=== PATIENT | female | born 1975 | race African-American/Black ===

== ENCOUNTER 2016-05-28 15:41 | Emergency (ER) | payer OTHER ==
[2016-05-28 15:48] VITALS: BP 106/80; PULSE 97; TEMP 97.9; BMI 25.7
== END 2016-05-28 16:28 | disposition left against medical advice (07) ==
LOC: JER 15:41
DX: Z53.21 Procedure and treatment not carried out due to patient leaving prior to being seen by health care provider (principal)
CPT/HCPCS: 99281-25

== ENCOUNTER 2016-05-29 08:33 | Emergency (ER) | payer OTHER ==
[2016-05-29 08:41] VITALS: BMI 25.7
[2016-05-29] MEDS ORDERED: SODIUM CHLORIDE 0.9% 1000 ML INFUS.BAG IV ONE ×2 (09:33→11:23)
[2016-05-29 09:42] LABS: URINE APPEARANCE CLEAR; URINE BILIRUBIN NEGATIVE (NEGATIVE); URINE COLOR YELLOW; URINE GLUCOSE (UA) NEGATIVE (NEGATIVE); URINE KETONE NEGATIVE (NEGATIVE); URINE LEUK ESTERASE NEGATIVE (NEGATIVE); URINE NITRITE NEGATIVE (NEGATIVE); URINE UROBILINOGEN NEGATIVE E.U./dl (0.2-1.0)
[2016-05-29 09:43] LABS: URINE BLOOD 2+ (NEGATIVE); URINE PROTEIN 1+ (NEGATIVE)
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
[2016-05-29 09:47] LABS: URINE BACTERIA FEW /hpf (NONE SEEN); URINE MUCUS FEW; URINE RBC 63 /hpf (0-3); URINE WBC 5 /hpf (3-5)
[2016-05-29] MEDS ORDERED: ACETAMINOPHEN 325 MG TABLET (FP) PO ONE (10:20)
[2016-05-29 10:23] LABS: BASOPHIL 0.4 % (0-2.0); EOSINOPHIL 1.7 % (0-4.5); MCH 28.2 pg (25.7-33.7); MCHC 33.3 g/dl (32.0-36.0); MEAN CELL VOLUME 84.8 fl (80-96); MEAN PLT VOLUME 7.6 fl (7.5-11.1); NEUTROPHILS 63.8 % (42.8-82.8); PLATELET COUNT 385 K/MM3 (134-434); RDW 14.4 % (11.6-15.6); WHITE BLOOD COUNT 7.2 K/mm3 (4.0-10.0)
[2016-05-29] MEDS ORDERED: ACETAMINOPHEN 325 MG TABLET (FP) ONE (10:26)
[2016-05-29 10:49] LABS: ALBUMIN 3.8 g/dl (3.4-5.0); ALK PHOS 135 U/L (45-117); ANION GAP 10 (8-16); BILIRUBIN,TOTAL 0.6 mg/dL (0.2-1.0); CALCIUM 9.4 mg/dL (8.5-10.1); CO2 21 mmol/L (21-32); CREATININE 0.8 mg/dL (0.55-1.02); GLUCOSE,RANDOM 109 mg/dL (74-106); SGPT/ALT 52 U/L (12-78)
[2016-05-29 10:51] LABS: SGOT/AST 47 U/L (15-37)
[2016-05-29] MEDS ORDERED: KETOROLAC TROMETHAMINE 30 MG/1 ML VIAL IVPUSH ONE (11:00)
[2016-05-29] MEDS ORDERED: KETOROLAC TROMETHAMINE 30 MG/1 ML VIAL ONE (11:04)
[2016-05-29 12:41] VITALS: BP 121/74; PULSE 100; TEMP 98.6
== END 2016-05-29 12:41 | disposition home or self-care (01) ==
LOC: JER 08:33
PROC: 3E0337Z Introduction of Electrolytic and Water Balance Substance into Peripheral Vein, Percutaneous Approach (ICD-10-PCS; principal; 2016-05-29)
PROC: 3E0333Z Introduction of Anti-inflammatory into Peripheral Vein, Percutaneous Approach (ICD-10-PCS; 2016-05-29)
DX: E86.0 Dehydration (principal); R80.8 Other proteinuria; R31.9 Hematuria, unspecified; Z93.2 Ileostomy status
CPT/HCPCS: 36415; 80053; 81003; 81015; 84703; 85025; 96361; 96374; 99283-25

== ENCOUNTER 2017-01-11 07:32 | Day surgery (SDC) | payer OTHER ==
[2017-01-11] MEDS ORDERED: IRON SUCROSE INJECTION 100 MG in SODIUM CHLORIDE 100 ML IVPB ONE (08:00)
[2017-01-11 11:24] LABS: BASOPHIL 0.6 % (0-2.0); EOSINOPHIL 1.1 % (0-4.5); MCH 27.9 pg (25.7-33.7); MCHC 32.6 g/dl (32.0-36.0); MEAN CELL VOLUME 85.7 fl (80-96); MEAN PLT VOLUME 7.8 fl (7.5-11.1); NEUTROPHILS 68.3 % (42.8-82.8); PLATELET COUNT 417 K/MM3 (134-434); RDW 15.5 % (11.6-15.6)
[2017-01-11 12:35] LABS: ALBUMIN 3.6 g/dl (3.4-5.0); ANION GAP 11 (8-16); BILIRUBIN,DIRECT 0.1 mg/dL (0.0-0.2); BILIRUBIN,TOTAL 0.5 mg/dL (0.2-1.0); CALCIUM 8.8 mg/dL (8.5-10.1); CO2 23 mmol/L (21-32); CREATININE 0.7 mg/dL (0.55-1.02); GLUCOSE,RANDOM 103 mg/dL (74-106); MAGNESIUM 1.8 mg/dL (1.8-2.4); SGOT/AST 9 U/L (15-37); SGPT/ALT 18 U/L (12-78)
[2017-01-11 12:36] LABS: ALK PHOS 81 U/L (45-117)
[2017-01-11] MEDS ORDERED: DEXAMETHASONE INJECTION 8 MG in DEXTROSE 5%-WATER - 50 ML IVPB ONE (13:00)
[2017-01-11 15:40] VITALS: PULSE 75; TEMP 98.4
[2017-01-11 15:49] VITALS: BP 129/82
[2017-01-12 08:07] LABS: SERUM IRON 37 ug/dL (27-159); TOTAL IRON BINDING CAPACITY 363 ug/dL (250-450); UIBC 326 ug/dL (131-425)
== END 2017-01-11 15:00 | disposition home or self-care (01) ==
LOC: JONCNONCHE 07:32 → J7W 13:05 → JONCNONCHE 15:00
PROVIDERS: ATTEND Internal Medicine Hematology & Oncology
PROC: 3E033GC Introduction of Other Therapeutic Substance into Peripheral Vein, Percutaneous Approach (ICD-10-PCS; principal; 2017-01-11)
DX: D50.9 Iron deficiency anemia, unspecified (principal)
CPT/HCPCS: 36415; 80053; 80076; 82306; 82607; 82728; 83540; 83550; 83735; 85025; 85730; 86140; 96365; 96367; 96375; 96417; J1756

== ENCOUNTER 2017-05-13 07:18 | Day surgery (SDC) | payer OTHER ==
[2017-05-13] MEDS ORDERED: DEXAMETHASONE SOD PHOSPHATE 10 MG/1 ML VIAL IVPUSH ONE (13:00)
[2017-05-13] MEDS ORDERED: IRON SUCROSE INJECTION 100 MG in SODIUM CHLORIDE 100 ML IVPB ONE (13:30)
[2017-05-13] MEDS ORDERED: DEXAMETHASONE SOD PHOSPHATE 4 MG/1 ML VIAL IVPUSH ONE (15:15)
[2017-05-13 18:03] VITALS: BP 128/75; PULSE 90; TEMP 98
== END 2017-05-13 18:39 | disposition home or self-care (01) ==
LOC: JONCNONCHE 07:18 → J7W 14:23 → JONCNONCHE 18:39
PROVIDERS: ATTEND Internal Medicine Hematology & Oncology
PROC: 3E033GC Introduction of Other Therapeutic Substance into Peripheral Vein, Percutaneous Approach (ICD-10-PCS; principal; 2017-05-13)
DX: D50.9 Iron deficiency anemia, unspecified (principal)
CPT/HCPCS: 96365; J1756

== ENCOUNTER 2017-07-19 07:30 | Day surgery (SDC) | payer OTHER ==
[2017-07-19] MEDS ORDERED: DEXAMETHASONE SOD PHOSPHATE 10 MG/1 ML VIAL IVPUSH ONE (10:00)
[2017-07-19] MEDS ORDERED: IRON SUCROSE INJECTION 100 MG in SODIUM CHLORIDE 100 ML IVPB ONE (10:30)
[2017-07-19 11:19] LABS: BASO % 0.7 % (0-2.0); HEMATOCRIT 37.3 % (32.4-45.2); HEMOGLOBIN 12.6 GM/dL (10.7-15.3); LYMPH % 23.3 % (8-40); MCH 30.5 pg (25.7-33.7); MCHC 33.8 g/dl (32.0-36.0); MEAN PLT VOLUME 7.2 fl (7.5-11.1); MONO % 6.8 % (3.8-10.2); NEUT % 68.2 % (42.8-82.8); PLATELET COUNT 395 K/MM3 (134-434); RBC 4.14 M/mm3 (3.60-5.2); RDW 12.7 % (11.6-15.6); WHITE BLOOD COUNT 7.5 K/mm3 (4.0-10.0)
[2017-07-19 11:43] LABS: ALBUMIN 3.7 g/dl (3.4-5.0); ANION GAP 7 (8-16); BILIRUBIN,TOTAL 0.5 mg/dL (0.2-1.0); BLOOD UREA NITROGEN 11 mg/dL (7-18); CHLORIDE 105 mmol/L (98-107); CO2 25 mmol/L (21-32); GLUCOSE,RANDOM 125 mg/dL (74-106); POTASSIUM 4.1 mmol/L (3.5-5.1); SGOT/AST 14 U/L (15-37); SGPT/ALT 20 U/L (12-78); SODIUM 137 mmol/L (136-145); TOT PROT 7.3 g/dl (6.4-8.2)
[2017-07-19 11:44] LABS: ALK PHOS 80 U/L (45-117)
[2017-07-19 12:00] LABS: BILIRUBIN,DIRECT 0.2 mg/dL (0.0-0.2); MAGNESIUM 1.8 mg/dL (1.8-2.4)
[2017-07-19] MEDS ORDERED: CYANOCOBALAMIN (VITAMIN B-12) 1000 MCG/1 ML VIAL IM ONE (12:30)
[2017-07-19 17:47] VITALS: TEMP 98.1
[2017-07-19 17:50] VITALS: BP 128/69; PULSE 79
== END 2017-07-19 14:00 | disposition home or self-care (01) ==
LOC: JONCCHEMO 07:30 → J7W 12:05 → JONCCHEMO 14:00
PROVIDERS: ATTEND Internal Medicine Hematology & Oncology
PROC: 3E033GC Introduction of Other Therapeutic Substance into Peripheral Vein, Percutaneous Approach (ICD-10-PCS; principal; 2017-07-19)
DX: D50.9 Iron deficiency anemia, unspecified (principal)
CPT/HCPCS: 36415; 80053; 80076; 82607; 82728; 83735; 85025; 96365; J1100; J1756

== ENCOUNTER 2017-08-23 07:32 | Day surgery (SDC) | payer OTHER ==
[~2017-08-23 07:32] MED LIST: DEXAMETHASONE INJECTION 8 MG in SODIUM CHLORIDE 50 ML IVPB ONE; IRON SUCROSE INJECTION 100 MG in SODIUM CHLORIDE 100 ML IVPB ONE
[2017-08-23] MEDS ORDERED: DEXAMETHASONE INJECTION 8 MG in SODIUM CHLORIDE 50 ML IVPB ONE (10:00)
[2017-08-23] MEDS ORDERED: IRON SUCROSE INJECTION 100 MG in SODIUM CHLORIDE 100 ML IVPB ONE (10:30)
[2017-08-23 15:13] VITALS: TEMP 98
[2017-08-23 15:47] VITALS: BP 122/73; PULSE 85
== END 2017-08-23 15:48 | disposition home or self-care (01) ==
LOC: JONCNONCHE 07:32
PROVIDERS: ATTEND Internal Medicine Hematology & Oncology
PROC: 3E033GC Introduction of Other Therapeutic Substance into Peripheral Vein, Percutaneous Approach (ICD-10-PCS; principal; 2017-08-23)
DX: D50.9 Iron deficiency anemia, unspecified (principal)
CPT/HCPCS: 96365; J1100; J1756

== ENCOUNTER 2017-09-30 08:16 | Day surgery (SDC) | payer OTHER ==
[2017-09-30] MEDS ORDERED: DEXAMETHASONE INJECTION 8 MG in SODIUM CHLORIDE 50 ML IVPB ONE (10:00)
[2017-09-30] MEDS ORDERED: IRON SUCROSE INJECTION 100 MG in SODIUM CHLORIDE 100 ML IVPB ONE (10:30)
[2017-09-30] MEDS ORDERED: DEXAMETHASONE SOD PHOSPHATE 10 MG/1 ML VIAL ONE (14:48)
--- NOTE | 2017-09-30 15:57 | HP ---
Satellite [facility] - Chief Complaint History of Present Illness: here for IV iron. Pt seen and examined. no issues History Source: Patient - Past Medical History Allergies/Adverse Reactions: Allergies Allergy/AdvReac Type Severity Reaction Status Date / Time shellfish derived Allergy Verified 05/29/16 08:35 Pulmonary: Yes: Asthma Gastrointestinal: Yes: Ulcerative Colitis ...LMP: 03/18/16 - Current Medications Current Medications: Home Medications Medication Instructions Recorded Albuterol 0.083% Nebulizer Yina 1 amp NEB Q4H PRN #0 amp 03/10/16 [Ventolin 0.083% Nebulizer Soln -] Budesonide/Formeterol Fumarate 2 puff IH BID inhaler 03/10/16 [SYMBICORT 160/4.5mcg -] Diphenoxylate 2.5/Atropine.025 2 combo PO Q6H 04/06/16 [Lomotil -] Satellite Physical Exam - Physical Examination General Appearance: Well Nourished, Well Developed, Alert & Oriented x3 Lung: Clear to auscultation Heart: Regular rate & rhythm Abdomen: Soft Extremities: No edema Satellite Impression/Plan - Impression/Plan Impression: for Venofer. for pre-meds. pt to call on tuesday for MD visit for follow-up appt
[2017-09-30 17:07] VITALS: BP 150/80; PULSE 81; TEMP 98
== END 2017-09-30 16:08 | disposition home or self-care (01) ==
LOC: JONCNONCHE 08:16 → J7W 14:07 → JONCNONCHE 16:08
PROVIDERS: ATTEND Internal Medicine Hematology & Oncology
PROC: 3E033GC Introduction of Other Therapeutic Substance into Peripheral Vein, Percutaneous Approach (ICD-10-PCS; principal; 2017-09-30)
DX: D50.9 Iron deficiency anemia, unspecified (principal)
CPT/HCPCS: 96365; J1100; J1756

== ENCOUNTER 2018-01-27 07:47 | Day surgery (SDC) | payer OTHER ==
[2018-01-27] MEDS ORDERED: DEXAMETHASONE INJECTION 8 MG in SODIUM CHLORIDE 50 ML IVPB ONE (10:00)
[2018-01-27] MEDS ORDERED: IRON SUCROSE INJECTION 100 MG in SODIUM CHLORIDE 100 ML IVPB ONE (10:15)
[2018-01-27 13:54] VITALS: TEMP 98.4
[2018-01-27 15:20] VITALS: BP 130/85; PULSE 79
== END 2018-01-27 12:25 | disposition home or self-care (01) ==
LOC: JONCNONCHE 07:47 → J7W 11:13 → JONCNONCHE 12:25
PROVIDERS: ATTEND Internal Medicine Hematology & Oncology
PROC: 3E033GC Introduction of Other Therapeutic Substance into Peripheral Vein, Percutaneous Approach (ICD-10-PCS; principal; 2018-01-27)
DX: D50.9 Iron deficiency anemia, unspecified (principal)
CPT/HCPCS: 96365; J1100; J1756

== ENCOUNTER 2018-03-27 08:35 | Day surgery (SDC) | payer OTHER ==
[2018-03-27] MEDS ORDERED: IRON SUCROSE INJECTION 100 MG in SODIUM CHLORIDE 100 ML IVPB ONE (10:00)
[2018-03-27] MEDS ORDERED: DEXAMETHASONE SODIUM PHOSPHATE 8 MG in SODIUM CHLORIDE 50 ML IVPB ONE (10:00)
[2018-03-27 17:18] VITALS: PULSE 84; TEMP 97.6
[2018-03-27 17:20] VITALS: BP 148/86
== END 2018-03-27 14:50 | disposition home or self-care (01) ==
LOC: JONCNONCHE 08:35 → J7W 13:36 → JONCNONCHE 14:50
PROVIDERS: ATTEND Internal Medicine Hematology & Oncology
PROC: 3E033GC Introduction of Other Therapeutic Substance into Peripheral Vein, Percutaneous Approach (ICD-10-PCS; principal; 2018-03-27)
DX: D50.9 Iron deficiency anemia, unspecified (principal)
CPT/HCPCS: 96365; J1756

== ENCOUNTER 2018-07-31 07:10 | Day surgery (SDC) | payer OTHER ==
[2018-07-31] MEDS ORDERED: DEXAMETHASONE SODIUM PHOSPHATE 8 MG in SODIUM CHLORIDE 50 ML IVPB ONE (10:00)
[2018-07-31] MEDS ORDERED: IRON SUCROSE INJECTION 200 MG in SODIUM CHLORIDE 100 ML IVPB ONE (10:15)
[2018-07-31 14:07] VITALS: TEMP 98
[2018-07-31 14:08] VITALS: BP 131/90; PULSE 92
== END 2018-07-31 13:10 | disposition home or self-care (01) ==
LOC: JONCNONCHE 07:10 → J7W 11:55 → JONCNONCHE 13:10
PROVIDERS: ATTEND Internal Medicine Hematology & Oncology
PROC: 3E033GC Introduction of Other Therapeutic Substance into Peripheral Vein, Percutaneous Approach (ICD-10-PCS; principal; 2018-07-31)
DX: D50.9 Iron deficiency anemia, unspecified (principal)
CPT/HCPCS: 96365; J1756

== ENCOUNTER 2019-03-09 06:25 | Day surgery (SDC) | payer OTHER ==
[2019-03-09] MEDS ORDERED: IRON SUCROSE INJECTION 200 MG in SODIUM CHLORIDE 100 ML IVPB ONE (10:00)
[2019-03-09] MEDS ORDERED: DEXAMETHASONE SODIUM PHOSPHATE 8 MG in SODIUM CHLORIDE 50 ML IVPB ONE (10:00)
[2019-03-09 14:10] LABS: HEMATOCRIT 35.7 % (32.4-45.2); HEMOGLOBIN 12.1 GM/dL (10.7-15.3); MCH 30.9 pg (25.7-33.7); MCHC 33.8 g/dl (32.0-36.0); MEAN CELL VOLUME 91.3 fl (80-96); MEAN PLT VOLUME 7.6 fl (7.5-11.1); PLATELET COUNT 334 K/MM3 (134-434); RBC 3.91 M/mm3 (3.60-5.2); RDW 11.8 % (11.6-15.6); WHITE BLOOD COUNT 8.3 K/mm3 (4.0-10.0)
[2019-03-09 14:37] LABS: IRON SERUM 96 ug/dL (50-175); TOTAL IRON BINDING CAPACITY 397 ug/dL (250-450)
[2019-03-09 15:16] VITALS: TEMP 98.3
[2019-03-09 15:17] VITALS: BP 108/64; PULSE 70
== END 2019-03-09 14:30 | disposition home or self-care (01) ==
LOC: JONCNONCHE 06:25 → J7W 11:22 → JONCNONCHE 14:30
PROVIDERS: ATTEND Internal Medicine Hematology & Oncology
PROC: 3E033GC Introduction of Other Therapeutic Substance into Peripheral Vein, Percutaneous Approach (ICD-10-PCS; principal; 2019-03-09)
DX: D50.9 Iron deficiency anemia, unspecified (principal)
CPT/HCPCS: 36415; 82728; 83540; 83550; 85027; 96365; J1756

== ENCOUNTER 2019-03-19 14:05 | Day surgery (SDC) | payer OTHER ==
[2019-03-19] MEDS ORDERED: DEXAMETHASONE SOD PHOSPHATE 4 MG/1 ML VIAL IVPB ONE (15:00)
[2019-03-19] MEDS ORDERED: IRON SUCROSE INJECTION 200 MG in SODIUM CHLORIDE 100 ML IVPB ONE (15:00)
[2019-03-19 18:20] VITALS: TEMP 98.1
[2019-03-19 18:26] VITALS: BP 138/87; PULSE 85
== END 2019-03-19 16:00 | disposition home or self-care (01) ==
LOC: JONCNONCHE 14:05 → J7W 14:06 → JONCNONCHE 16:00
PROVIDERS: ATTEND Internal Medicine Hematology & Oncology
PROC: 3E033GC Introduction of Other Therapeutic Substance into Peripheral Vein, Percutaneous Approach (ICD-10-PCS; principal; 2019-03-19)
DX: D50.9 Iron deficiency anemia, unspecified (principal)
CPT/HCPCS: 96365; J1756

== ENCOUNTER 2019-03-27 07:27 | Day surgery (SDC) | payer OTHER ==
[2019-03-27] MEDS ORDERED: DEXAMETHASONE SOD PHOSPHATE 4 MG/1 ML VIAL IVPB ONE (17:15)
[2019-03-27] MEDS ORDERED: IRON SUCROSE INJECTION 200 MG in SODIUM CHLORIDE 100 ML IVPB ONE (17:15)
[2019-03-27 17:34] VITALS: TEMP 98.2
[2019-03-27 18:49] VITALS: BP 127/83; PULSE 95
== END 2019-03-27 18:45 | disposition home or self-care (01) ==
LOC: JONCNONCHE 07:27 → J7W 16:11 → JONCNONCHE 18:45
PROVIDERS: ATTEND Internal Medicine Hematology & Oncology
PROC: 3E033GC Introduction of Other Therapeutic Substance into Peripheral Vein, Percutaneous Approach (ICD-10-PCS; principal; 2019-03-27)
DX: D50.9 Iron deficiency anemia, unspecified (principal)
CPT/HCPCS: 96365; J1756

== ENCOUNTER 2020-08-22 07:54 | Day surgery (SDC) | payer OTHER ==
[2020-08-22] MEDS ORDERED: FERRIC CARBOXYMALTOSE 750 MG in SODIUM CHLORIDE 250 ML IVPB ONE (11:00)
[2020-08-22] MEDS ORDERED: methylPREDNISolone NA SUCC 125 MG/2 ML VIAL IVPB ONE (14:02)
[2020-08-22 17:37] VITALS: PULSE 81; TEMP 98.1
[2020-08-22 17:39] VITALS: BP 140/92
[2020-08-29] MEDS ORDERED: methylPREDNISolone NA SUCC 125 MG/2 ML VIAL IVPB ONE (10:00)
[2020-08-29] MEDS ORDERED: FERRIC CARBOXYMALTOSE 750 MG in SODIUM CHLORIDE 250 ML IVPB ONE (10:00)
== END 2020-08-22 16:00 | disposition home or self-care (01) ==
LOC: JONCNONCHE 07:54
PROVIDERS: ATTEND Internal Medicine Hematology & Oncology
PROC: 3E033GC Introduction of Other Therapeutic Substance into Peripheral Vein, Percutaneous Approach (ICD-10-PCS; principal; 2020-08-22)
DX: D50.9 Iron deficiency anemia, unspecified (principal)
CPT/HCPCS: 96365; J1439

== ENCOUNTER 2024-05-04 11:24 | Day surgery (SDC) | payer OTHER ==
[2024-05-04] MEDS: SODIUM CHLORIDE IVPB ONE (12:30)
[2024-05-04] MEDS: METHYLPREDNISOLONE NA SUCC IVPB ONE (12:30)
[2024-05-04] MEDS: FERRIC CARBOXYMALTOSE 750 MG in SODIUM CHLORIDE 250 ML IVPB ONE (13:05)
[2024-05-04 18:11] VITALS: BP 147/84; PULSE 107; RESP 18; TEMP 98.4
== END 2024-05-04 14:10 | disposition home or self-care (01) ==
LOC: JONCCHEMO 11:24 → J7W 11:25 → JONCCHEMO 14:10
PROVIDERS: ATTEND Internal Medicine Hematology & Oncology
PROC: 3E033GC Introduction of Other Therapeutic Substance into Peripheral Vein, Percutaneous Approach (ICD-10-PCS; principal; 2024-05-04)
DX: D50.9 Iron deficiency anemia, unspecified (principal)
CPT/HCPCS: 96365; J1439

== ENCOUNTER 2025-02-01 13:30 | Day surgery (SDC) | payer OTHER ==
[2025-02-01] MEDS: METHYLPREDNISOLONE NA SUCC IVPB ONE (13:58)
[2025-02-01] MEDS: SODIUM CHLORIDE IVPB ONE (13:58)
[2025-02-01 14:14] VITALS: RESP 18; TEMP 99
[2025-02-01] MEDS: FERRIC CARBOXYMALTOSE 750 MG in SODIUM CHLORIDE 250 ML IVPB ONE (14:30)
[2025-02-01 15:19] VITALS: BP 132/69; PULSE 81
== END 2025-02-01 15:39 | disposition home or self-care (01) ==
LOC: JONCCHEMO 13:30 → J7W 13:50 → JONCCHEMO 15:39
PROVIDERS: ATTEND Internal Medicine Hematology & Oncology
PROC: 3E033GC Introduction of Other Therapeutic Substance into Peripheral Vein, Percutaneous Approach (ICD-10-PCS; principal; 2025-02-01)
DX: D50.9 Iron deficiency anemia, unspecified (principal)
CPT/HCPCS: 96365; J1439